=== PATIENT | female | born 1995 | race African-American/Black ===

== ENCOUNTER 2019-06-05 | Emergency (ER) | payer BC ==
[~2019-06-05] MED LIST: AMOXICILLIN500 MG PO; AUGMENTIN500 MG OR; BACTROBAN2 % EX; CLARITIN-D1 TA2 PO; CLARITIN10 M1 PO; FLONASE NASAL50 MCG; FLONASE SPRAY50 MC1; IBUPROFEN400 MG OR; KEFLEX250 MG/5 M OR; MOTRIN400 MG/TAB PO; NO HOME MEDS; TYLENOL & COD12.5 ML OR
[2019-06-05 08:14] LABS: URINE BILIRUBIN - DIPSTICK NEGATIVE (NEGATIVE); URINE BLOOD DIPSTICK MODERATE (NEGATIVE); URINE COLOR YELLOW; URINE GLUCOSE - DIPSTICK NEGATIVE (NEGATIVE); URINE KETONE NEGATIVE (NEGATIVE); URINE LEUK ESTERASE SMALL (NEGATIVE); URINE NITRITE - DIPSTICK NEGATIVE (Negative); URINE PROTEIN - DIPSTICK NEGATIVE (NEG-TRACE); URINE UROBILINOGEN - DIPSTICK 0.2 E.U./dL (0.2)
[2019-06-05 08:15] LABS: URINE BACTERIA FEW hpf; URINE EPITHELIAL CELLS FEW EPI/hpf (0-FEW)
[2019-06-05 08:16] LABS: HEMATOCRIT 33.8 % (37.0-47.0); HEMOGLOBIN 10.6 g/dl (12.0-16.0); MEAN CELL VOLUME 83.3 fL CALC (80.0-100.0); MEAN CORPUSCULAR HGB 26.1 pG CALC (26.0-32.0); MEAN CORPUSCULAR HGB CONC 31.4 g/L CALC (32.0-36.0); NEUT# 3.09 thou/uL (2.00-7.15); RED BLOOD COUNT 4.06 mill/uL (4.20-5.60); RED CELL DISTRI WIDTH 14.2 % (11.5-15.5)
[2019-06-05 08:26] LABS: ALBUMIN 4.6 g/dL (3.2-5.0); ALKALINE PHOSPHATASE 60 u/l (38-126); AMYLASE 110 u/l (30-110); ANION GAP 14 (6-22 (CALC)); BILIRUBIN, TOTAL 0.4 mg/dL (0.0-1.4); BUN 10 mg/dL (7-17); BUN/CREATININE RATIO 16 (12-20 (CALC)); CARBON DIOXIDE 24 mmol/l (22-30); CHLORIDE 103 mmol/l (95-108); CREATININE 0.6 mg/dL (0.5-1.0); GFR > 60 ML/MIN (>=60 (CALC)); GFR FOR AFR.AMER. > 60 ML/MIN (>=60 (CALC)); LIPASE 97 u/l (23-300); POTASSIUM 3.6 mmol/l (3.5-5.1); SGOT/AST 22 u/l (14-36); SODIUM 138 mmol/l (137-146); TOTAL PROTEIN 8.5 g/dL (6.3-8.2)
[2019-06-05] MEDS ORDERED: KEFLEX500 M1 PO ×2 (09:52)
[2019-06-05] MEDS ORDERED: ONDANSETRON4 MG PO ×2 (09:52)
== END 2019-06-05 10:07 | disposition home or self-care (01) | DRG 690 ==
PROVIDERS: Emergency Medicine
DX: N39.0 Urinary tract infection, site not specified (principal)
CPT/HCPCS: Q9967

== ENCOUNTER 2020-01-26 18:53 | Emergency (ER) | payer BC ==
[~2020-01-26] VITALS: Ht 157.5 cm; Wt 70.5 kg
[~2020-01-26 18:53] MED LIST changes: +KEFLEX500 M1 PO; +ONDANSETRON4 MG PO
[2020-01-26] MEDS ORDERED: AMOX/K CLAV875 M1 PO (19:13)
[2020-01-26 19:35] VITALS: BP 143/89
== END 2020-01-26 19:35 | disposition home or self-care (01) | DRG 605 ==
LOC: ED 18:53
DX: S00.87XA Other superficial bite of other part of head, initial encounter (principal); S00.571A Other superficial bite of lip, initial encounter; W54.0XXA Bitten by dog, initial encounter; Y93.89 Activity, other specified; Y92.009 Unspecified place in unspecified non-institutional (private) residence as the place of occurrence of the external cause

== ENCOUNTER 2020-11-25 15:51 | Emergency (ER) | payer SELFPAY ==
[~2020-11-25] VITALS: Ht 157.5 cm; Wt 70.5 kg
[~2020-11-25 15:51] MED LIST changes: +AMOX/K CLAV875 M1 PO
[2020-11-25 17:02] LABS: URINE BLOOD DIPSTICK NEGATIVE (NEGATIVE); URINE COLOR YELLOW; URINE GLUCOSE - DIPSTICK NEGATIVE (NEGATIVE); URINE KETONE TRACE mg/dL (NEGATIVE); URINE LEUK ESTERASE NEGATIVE (NEGATIVE); URINE PH 5.5 (4.5-8.0); URINE PROTEIN - DIPSTICK TRACE mg/dL (NEG-TRACE); URINE SPECIFIC GRAVITY >=1.030; URINE UROBILINOGEN - DIPSTICK 0.2 E.U./dL (0.2)
[2020-11-25 17:04] LABS: HEMATOCRIT 31.2 % (37.0-47.0); HEMOGLOBIN 9.8 g/dl (12.0-16.0); IMMATURE GRANULOCYTES 0.1 % (0.0-5.0); MEAN CELL VOLUME 81.7 fL CALC (80.0-100.0); MEAN CORPUSCULAR HGB 25.7 pG CALC (26.0-32.0); MEAN CORPUSCULAR HGB CONC 31.4 g/dL CAL (32.0-36.0); NEUT# 6.09 thou/uL (2.00-7.15); RED BLOOD COUNT 3.82 mill/uL (4.20-5.60); RED CELL DISTRI WIDTH 14.2 % (11.5-15.5)
[2020-11-25 17:07] LABS: URINE BILIRUBIN - DIPSTICK SMALL (NEGATIVE); URINE NITRITE - DIPSTICK NEGATIVE (Negative)
[2020-11-25 17:20] LABS: ALBUMIN 4.4 g/dL (3.2-5.0); ALKALINE PHOSPHATASE 69 u/l (38-126); AMYLASE 69 u/l (30-110); ANION GAP 14 (6-22 (CALC)); BILIRUBIN, TOTAL 0.4 mg/dL (0.0-1.4); BUN 13 mg/dL (7-17); BUN/CREATININE RATIO 18 (12-20 (CALC)); CARBON DIOXIDE 27 mmol/l (22-30); CHLORIDE 102 mmol/l (95-108); CREATININE 0.7 mg/dL (0.5-1.0); GFR > 60 ML/MIN (>=60 (CALC)); GFR FOR AFR.AMER. > 60 ML/MIN (>=60 (CALC)); LIPASE 82 u/l (23-300); POTASSIUM 3.7 mmol/l (3.5-5.1); SGOT/AST 21 u/l (14-36); SODIUM 139 mmol/l (137-146); TOTAL PROTEIN 8.2 g/dL (6.3-8.2)
[2020-11-25 19:29] VITALS: BP 126/78
== END 2020-11-25 19:35 | disposition home or self-care (01) | DRG 206 ==
LOC: ED 15:51
DX: M94.0 Chondrocostal junction syndrome [Tietze] (principal)

== ENCOUNTER 2021-06-21 11:04 | Emergency (ER) | payer SELFPAY ==
[~2021-06-21] VITALS: Ht 157.5 cm; Wt 64.5 kg
[2021-06-21 12:09] LABS: URINE BILIRUBIN - DIPSTICK NEGATIVE (NEGATIVE); URINE BLOOD DIPSTICK LARGE (NEGATIVE); URINE COLOR YELLOW; URINE GLUCOSE - DIPSTICK NEGATIVE (NEGATIVE); URINE KETONE TRACE mg/dL (NEGATIVE); URINE LEUK ESTERASE NEGATIVE (NEGATIVE); URINE PH 5.5 (4.5-8.0); URINE PROTEIN - DIPSTICK NEGATIVE (NEG-TRACE); URINE SPECIFIC GRAVITY >=1.030; URINE UROBILINOGEN - DIPSTICK 0.2 E.U./dL (0.2)
[2021-06-21 12:10] LABS: URINE NITRITE - DIPSTICK NEGATIVE (Negative); URINE SQUAMOUS EPITHELIAL CELL FEW EPI/hpf (0-FEW); URINE WBC 0-2 WBC/hpf (0-5)
[2021-06-21 12:11] LABS: URINE BACTERIA FEW hpf
[2021-06-21] MEDS ORDERED: BACTRIM DS1 TAB PO (12:17)
[2021-06-21 12:29] VITALS: BP 122/85
[2021-06-22] MEDS ORDERED: ONDANSETRON4 MG PO (00:07)
[2021-06-22] MEDS ORDERED: TAMSULOSIN0.4 MG PO (00:07)
[2021-06-22] MEDS ORDERED: ULTRAM50 M1 PO (00:09)
== END 2021-06-21 12:29 | disposition home or self-care (01) | DRG 690 ==
LOC: ED 11:04
DX: N39.0 Urinary tract infection, site not specified (principal)

== ENCOUNTER 2021-06-21 21:05 | Emergency (ER) | payer SELFPAY ==
[~2021-06-21] VITALS: Ht 157.5 cm; Wt 64.0 kg
[~2021-06-21 21:05] MED LIST changes: +BACTRIM DS1 TAB PO
[2021-06-21 23:48] LABS: HEMATOCRIT 36.1 % (37.0-47.0); HEMOGLOBIN 11.4 g/dl (12.0-16.0); IMMATURE GRANULOCYTES 0.1 % (0.0-5.0); MEAN CORPUSCULAR HGB 27.5 pG CALC (26.0-32.0); MEAN CORPUSCULAR HGB CONC 31.6 g/dL CAL (32.0-36.0); NEUT# 9.01 thou/uL (2.00-7.15); RED BLOOD COUNT 4.15 mill/uL (4.20-5.60)
[2021-06-21 23:54] LABS: URINE BILIRUBIN - DIPSTICK NEGATIVE (NEGATIVE); URINE BLOOD DIPSTICK NEGATIVE (NEGATIVE); URINE GLUCOSE - DIPSTICK 100 mg/dL (NEGATIVE); URINE KETONE 40 mg/dL (NEGATIVE); URINE PROTEIN - DIPSTICK 30 mg/dL (NEG-TRACE)
[2021-06-21 23:56] LABS: URINE COLOR ORANGE
[2021-06-22 00:02] LABS: URINE NITRITE - DIPSTICK POSITIVE (Negative)
[2021-06-22 00:03] LABS: URINE LEUK ESTERASE NEGATIVE (NEGATIVE)
[2021-06-22] MEDS ORDERED: TAMSULOSIN0.4 MG PO (00:07)
[2021-06-22] MEDS ORDERED: ONDANSETRON4 MG PO (00:07)
[2021-06-22 00:08] LABS: ALBUMIN 4.6 g/dL (3.2-5.0); ALKALINE PHOSPHATASE 68 u/l (38-126); ANION GAP 13 (6-22 (CALC)); BUN 11 mg/dL (7-17); BUN/CREATININE RATIO 9 (12-20 (CALC)); CARBON DIOXIDE 26 mmol/l (22-30); CHLORIDE 101 mmol/l (95-108); CREATININE 1.2 mg/dL (0.5-1.0); GFR 56 ML/MIN (>=60 (CALC)); GFR FOR AFR.AMER. > 60 ML/MIN (>=60 (CALC)); POTASSIUM 3.8 mmol/l (3.5-5.1); SGOT/AST 23 u/l (14-36); SODIUM 136 mmol/l (137-146); TOTAL PROTEIN 8.3 g/dL (6.3-8.2)
[2021-06-22 00:09] LABS: BILIRUBIN, TOTAL 0.7 mg/dL (0.0-1.4)
[2021-06-22] MEDS ORDERED: ULTRAM50 M1 PO (00:09)
[2021-06-22 00:26] VITALS: BP 125/75
== END 2021-06-22 01:05 | disposition home or self-care (01) | DRG 694 ==
LOC: ED 21:05
PROVIDERS: Emergency Medicine
DX: N20.1 Calculus of ureter (principal); N39.0 Urinary tract infection, site not specified